=== PATIENT | female | born 1990 | race African-American/Black ===

== ENCOUNTER 2016-04-11 09:16 | Emergency (ER) | payer OTHER ==
[~2016-04-11] VITALS: Ht 162.6 cm; Wt 81.6 kg
[~2016-04-11 09:16] MED LIST: HYDR-971 PO; IRON1TAB30 PO; ONDA4TAB10 SL
--- NOTE | 2016-04-11 10:11 | PHYS DOC ---
Past Medical History Past Medical History: Anemia, Other Additional Past Medical Histor: PSEUDOTUMOR CEREBRI, ovarian cysts Past Surgical History: , Other Additional Past Surgical Histo: SPINAL TAP Alcohol Use: Occasionally Drug Use: None Adult General Chief Complaint Chief Complaint: ABDOMINAL PAIN HPI HPI Patient is a 25 year old female presents emergency department stating that she is having lower abdominal pain. She states that goes all the way across the lower abdomen. She also states that she has having mid lower back pain. Patient states that she has been having urinary frequency. She does state yesterday when she wiped she did have some spotting in which she noted. She is not sure if that came from the vaginal area or if that was after urination. Patient does state that she is 6 days late for her last menstrual period. Her last menstrual period was March 04. Patient states that she does have irregular menstrual cycles and somnolence she has missed her cycle. Patient does state she's had some nausea feeling although this is pretty normal for her. She denies any vomiting. She denies any fever, chills or any diarrhea. Review of Systems Review of Systems Constitutional: Denies fever or chills [] Eyes: Denies change in visual acuity, redness, or eye pain [] HENT: Denies nasal congestion or sore throat [] Respiratory: Denies cough or shortness of breath [] Cardiovascular: No additional information not addressed in HPI [] GI: lower abdominal pain, nausea, denies vomiting, bloody stools or diarrhea [] : Denies dysuria or hematuria [] Musculoskeletal: Denies back pain or joint pain [] Integument: Denies rash or skin lesions [] Neurologic: Denies headache, focal weakness or sensory changes [] Allergies Allergies Allergies Coded Allergies Type Severity Reaction Last Updated Verified No Known Drug Allergies 12/07/15 No Physical Exam Physical Exam Constitutional: Well developed, well nourished, no acute distress, non-toxic appearance. [] HENT: Normocephalic, atraumatic, bilateral external ears normal, oropharynx moist, no oral exudates, nose normal. [] Eyes: PERRLA, EOMI, conjunctiva normal, no discharge. [] Neck: Normal range of motion, no tenderness, supple, no stridor. [] Cardiovascular:Heart rate regular rhythm, no murmur [] Lungs & Thorax: Bilateral breath sounds clear to auscultation [] Abdomen: Bowel sounds hypoactive, soft, no tenderness, no masses, no pulsatile masses. [] Skin: Warm, dry, no erythema, no rash. [] Back: No tenderness, no CVA tenderness. [] Extremities: No tenderness, no cyanosis, no clubbing, ROM intact, no edema. [] Neurologic: Alert and oriented X 3, normal motor function, normal sensory function, no focal deficits noted. [] Psychologic: Affect normal, judgement normal, mood normal. [] Current Patient Data Vital Signs Vital Signs Date Time Temp Pulse Resp B/P Pulse Ox O2 Delivery O2 Flow Rate FiO2 04/11/16 11:53 77 16 118/62 98 Room Air 04/11/16 09:30 98.9 98.9 Lab Values Laboratory Tests Test 04/11/16 09:56 04/11/16 10:30 Urine Collection Type Void Urine Color Yellow Urine Clarity Clear Urine pH 6.0 Urine Specific [place] >=1.030 Urine Protein Negativemg/dL (NEG-TRACE) Urine Glucose (UA) Negativemg/dL (NEG) Urine Ketones (Stick) Negativemg/dL (NEG) Urine Blood Negative (NEG) Urine Nitrite Negative (NEG) Urine Bilirubin Negative (NEG) Urine Urobilinogen Dipstick 0.2mg/dL (0.2 mg/dL) Urine Leukocyte Esterase Large (NEG) Urine RBC 0/HPF (0-2) Urine WBC 11-20/HPF (0-4) Urine Squamous Epithelial Cells Mod/LPF Urine Bacteria Moderate/HPF (0-FEW) Urine Mucus Marked/LPF Maternal Serum HCG Beta Subunit 14mIU/mL (0-6) H Microbiology 04/11/16 Wet Prep - Final, Complete EKG EKG [] Radiology/Procedures Radiology/Procedures ][[facility] [address] [place], [place] [id number] IMAGING REPORT Signed PATIENT: LORENA CHAMPION ACCOUNT: [id number] : 1990 LOCATION: ER AGE: 25 SEX: F EXAM STATUS: REG ER ORD. PHYSICIAN: ALETHA OLIVA NP REASON: lower abdominal cramping with spotting yesterday PROCEDURE: OB <14 WKS W/TV Indication . Lower abdominal discomfort. An early obstetrical ultrasound examination was performed. Initially transabdominal scans were obtained. The initial transabdominal scans were supplemented with transvaginal scans. No quantitative hCG value is available time of the interpretation of the study. No recent pelvic ultrasound imaging is available for comparison purposes. The uterus measures approximately 9.6 x 5.6 x 4.8 cm. The endometrium is mildly thickened at 1.3 cm. No IUP is seen. Significant free fluid in the pelvis is not seen. There is a septated hypoechoic mass, compatible with a physiologic cyst, associated with the right ovary. The left ovary appears normal. IMPRESSION: No evidence of IUP. The findings should be correlated with a quantitative hCG value. Diagnostic considerations would include non state, early IUP, miscarriage or ectopic . DICTATED and SIGNED BY: CHRISTIAN BOUDREAUX MD DATE: 04/11/16 1104 CC: ALETHA OLIVA IT HELP DESK ANALYST; NO PCP ~ Course & Med Decision Making Course & Med Decision Making Pertinent Labs and Imaging studies reviewed. (See chart for details) Patient was noted to have a urinary tract infection. Ultrasound was able to identify an intrauterine at this time unsure if it's too early or if there is a possibility of miscarriage. They did question ectopic . Vaginal exam was completed patient with no adnexal tenderness noted. Patient does have cervical motion tenderness. She does have some yellow vaginal discharge. Quantitative hCG was 14. WetPrep positive for bacterial vaginosis. Urine was positive for urinary tract infection. Patient will be placed on Flagyl as well as Macrobid. Recommended patient to follow up with her PANEL SEWER for a series of quantitative hCGs. Patient was provided with results. Signs and symptoms to return back to emergency department as been provided. Patient agrees with discharge instructions treatment regimens and follow-up recommendations. [] Dragon Disclaimer Dragon Disclaimer This electronic medical record was generated, in whole or in part, using a voice recognition dictation system. Departure Departure Impression: Primary Impression: Abdominal pain affecting Additional Impressions: Threatened UTI (urinary tract infection) Bacterial vaginosis Disposition: HOME, SELF-CARE Condition: STABLE Referrals: NO PCP (PCP) Patient Instructions: Abdominal Pain During , [id number], Bacterial Vaginosis, [id number], Threatened Miscarriage, Iqhm-ik-Mjqe, Urinary Tract Infection, Ccze-bo-Fefx Additional Instructions: Activity as tolerated. Medication as prescribed. Drink plenty of fluids such as water and cranberry juice. Avoid cranberry juice cocktail, carbonated beverages, citrus fruits alcohol and caffeine as these are all considered irritants to the bladder. Your quantitative hCG is 14 you will need to follow-up with an PANEL SEWER for serial quantitative hCG results follow-up with him in 2-3 days. Pelvic rest. This would include no sexual activity nothing to be inserted into the vaginal area. Follow-up with your PANEL SEWER in the next 2-3 days. Return back to emergency prior signs symptoms of become worse. Scripts Nitrofurantoin Monohyd/M-Cryst (Macrobid 100 Mg Capsule)100 Mg Capsule1 Cap PO BID #14 CAP Prov:ALETHA OLIVA NP 04/11/16 Metronidazole (Flagyl)500 Mg Tablet1 Tab PO BID #14 TAB Prov:ALETHA OLIVA NP 04/11/16 Problem Qualifiers ALETHA OLIVA NP Apr 11, 2016 10:11
[2016-04-11 10:14] LABS: BILIRUBIN,URINE NEGATIVE (NEG); GLUCOSE,URINE NEGATIVE (NEG); NITRITE,URINE NEGATIVE (NEG); PROTEIN,URINE NEGATIVE (NEG-TRACE); UROBILINOGEN,URINE 0.2 mg/dL (0.2 mg/dL)
[2016-04-11 10:33] LABS: BACTERIA,URINE MODERATE /HPF (0-FEW); RBC,URINE 0 /HPF (0-2); SQUAMOUS EPITHELIAL CELL,UR MOD /LPF
--- NOTE | 2016-04-11 11:08 | RAD ---
Indication . Lower abdominal discomfort. An early obstetrical ultrasound examination was performed. Initially transabdominal scans were obtained. The initial transabdominal scans were supplemented with transvaginal scans. No quantitative hCG value is available time of the interpretation of the study. No recent pelvic ultrasound imaging is available for comparison purposes. The uterus measures approximately 9.6 x 5.6 x 4.8 cm. The endometrium is mildly thickened at 1.3 cm. No IUP is seen. Significant free fluid in the pelvis is not seen. There is a septated hypoechoic mass, compatible with a physiologic cyst, associated with the right ovary. The left ovary appears normal. IMPRESSION: No evidence of IUP. The findings should be correlated with a quantitative hCG value. Diagnostic considerations would include non state, early IUP, miscarriage or ectopic .
[2016-04-11 11:53] VITALS: BP 118/62
[2016-04-11] MEDS ORDERED: NITR100C62 PO (12:12)
[2016-04-11] MEDS ORDERED: METR500T PO (12:12)
== END 2016-04-11 12:35 | disposition home or self-care (01) ==
LOC: ER 09:16
DX: O20.0 Threatened abortion (principal); O98.819 Other maternal infectious and parasitic diseases complicating pregnancy, unspecified trimester; O23.599 Infection of other part of genital tract in pregnancy, unspecified trimester; Z3A.00 Weeks of gestation of pregnancy not specified
CPT/HCPCS: 36415; 76801; 76817; 81001; 81025; 84702; 86900; 86901; 87086; 87491; 87591; 99285; Q0111

== ENCOUNTER 2016-04-21 10:47 | Emergency (ER) | payer OTHER ==
[~2016-04-21] VITALS: Ht 162.6 cm; Wt 90.7 kg
[~2016-04-21 10:47] MED LIST changes: +METR500T PO; +NITR100C62 PO
[2016-04-21 11:24] LABS: BILIRUBIN,URINE NEGATIVE (NEG); GLUCOSE,URINE NEGATIVE (NEG); NITRITE,URINE NEGATIVE (NEG); PROTEIN,URINE NEGATIVE (NEG-TRACE); UROBILINOGEN,URINE 0.2 mg/dL (0.2 mg/dL)
[2016-04-21 11:43] LABS: BACTERIA,URINE FEW /HPF (0-FEW); WBC,URINE OCC /HPF (0-4)
[2016-04-21 11:44] LABS: SQUAMOUS EPITHELIAL CELL,UR MANY /LPF
[2016-04-21 11:45] LABS: ALBUMIN 3.4 g/dL (3.4-5.0); ALK PHOS 58 U/L (46-116); ALT (SGPT) 12 U/L (14-59); AST (SGOT) 15 U/L (15-37); DIRECT BILIRUBIN < 0.1 mg/dL (0.0-0.2); TOTAL BILIRUBIN 0.2 mg/dL (0.2-1.0); TOTAL PROTEIN 7.6 g/dL (6.4-8.2)
[2016-04-21 11:47] LABS: BASO % 1 % (0-3); EOS % 2 % (0-3); HEMATOCRIT 32.6 % (36.0-47.0); HEMOGLOBIN 9.5 g/dL (12.0-15.5); LYMPH # 2.3 x10^3/uL (1.0-4.8); LYMPH % 28 % (24-48); MEAN CORPUSCULAR HEMOGLOBIN 18 pg (25-35); MEAN CORPUSCULAR HGB CONC 29 g/dL (31-37); MEAN CORPUSCULAR VOLUME 63 fL (79-100); MONO % 10 % (0-9); NEUT % 59 % (31-73); PLATELET COUNT 549 x10^3/uL (140-400); RED BLOOD COUNT 5.19 x10^6/uL (3.50-5.40); RED CELL DISTRIBUTION WIDTH 19.9 % (11.5-14.5); WHITE BLOOD COUNT 8.1 x10^3/uL (4.0-11.0)
--- NOTE | 2016-04-21 12:55 | RAD ---
Exam performed: Complete abdominal ultrasound. History: Epigastric pain. Date of service: 04/21/16. Comparison: None available Technique: Real-time grayscale imaging of the right upper abdomen is performed and images are obtained. Findings: The liver is normal in size and echogenicity without focal lesions. It measures 15.6 cm in length. No intra or extraperitoneal biliary ductal dilatation is seen. Gallbladder is normal. No evidence of gallbladder wall thickening or pericholecystic fluid seen. Gallbladder wall measures 1.7 mm Common bile duct measures 2.5 mm. The right kidney measures 12.9 x 4.6 x 4.6 cm. There is no hydronephrosis or nephrolithiasis. The visualized pancreas, IVC and aorta appear normal. Impression: Negative right upper quadrant ultrasound.
[2016-04-21 13:09] LABS: CREATININE 0.8 mg/dL (0.6-1.0); GFR 106.6; POTASSIUM 4.1 mmol/L (3.5-5.1)
--- NOTE | 2016-04-21 13:13 | PHYS DOC ---
Past Medical History Past Medical History: Anemia, Other Additional Past Medical Histor: PSEUDOTUMOR CEREBRI, ovarian cysts Past Surgical History: , Other Additional Past Surgical Histo: SPINAL TAP Alcohol Use: Occasionally Drug Use: None Adult General Chief Complaint Chief Complaint: VAGINAL BLEEDING HPI HPI 25-year-old female who is a G2 in the first trimester who is presenting with some significant vaginal bleeding as well as some mild epigastrium and right upper quadrant pain. She states she's been mildly short of breath for the last day. Patient was seen 10 days ago for lower abdominal cramping and had a serum quantitative value at that time 14. She was found to have bacterial vaginosis and prescribed Flagyl. She was also found to have a UTI and prescribed Macrobid. She finished both courses of antibiotics and follow-up with OB doctor. She currently she states and vitamins and progesterone. She is speaking in complete sentences and in no acute distress at this time. He states her first was 5 years ago and required an emergent at 38 weeks. She then had a Mirena device placed and recently had this removed area. States the past medical history only of pseudotumor cerebri for which she is supposed to be taking Diamox but has not been taking her medication recently. She denies any headache or visual disturbance today. Review of Systems Review of Systems Constitutional: Denies fever or chills [] Eyes: Denies change in visual acuity, redness, or eye pain [] HENT: Denies nasal congestion or sore throat [] Respiratory: Denies cough, has shortness of breath [] Cardiovascular: No additional information not addressed in HPI [] GI: Has abdominal pain, denies nausea, denies vomiting, bloody stools or diarrhea [] : Denies dysuria or hematuria [] Musculoskeletal: Denies back pain or joint pain [] Integument: Denies rash or skin lesions [] Neurologic: Denies headache, focal weakness or sensory changes [] Endocrine: Denies polyuria or polydipsia [] Allergies Allergies Allergies Coded Allergies Type Severity Reaction Last Updated Verified No Known Drug Allergies 12/07/15 No Physical Exam Physical Exam Constitutional: Well developed, well nourished, no acute distress, non-toxic appearance. [] HENT: Normocephalic, atraumatic, bilateral external ears normal, oropharynx moist, no oral exudates, nose normal. [] Eyes: PERRLA, EOMI, conjunctiva normal, no discharge. [] Neck: Normal range of motion, no tenderness, supple, no stridor. [] Cardiovascular:Heart rate regular rhythm, no murmur [] Lungs & Thorax: Bilateral breath sounds clear to auscultation [] Abdomen: Bowel sounds normal, soft, epigastric and RUQ tenderness, no masses, no pulsatile masses. [] Pelvic exam: Closed cervical os with scant amount of blood in the vaginal vault , there is no cervical or adnexal tenderness Skin: Warm, dry, no erythema, no rash. [] Back: No tenderness, no CVA tenderness. [] Extremities: No tenderness, no cyanosis, no clubbing, ROM intact, no edema. [] Neurologic: Alert and oriented X 3, normal motor function, normal sensory function, no focal deficits noted. [] Psychologic: Affect normal, judgement normal, mood normal. [] Current Patient Data Vital Signs Vital Signs Date Time Temp Pulse Resp B/P Pulse Ox O2 Delivery O2 Flow Rate FiO2 04/21/16 11:20 118/82 04/21/16 11:00 99.2 85 28 100 Room Air 99.2 Lab Values Laboratory Tests Test 04/21/16 10:50 04/21/16 11:07 04/21/16 11:10 04/21/16 11:50 Urine Collection Type Unknown Urine Color Yellow Urine Clarity Clear Urine pH 6.0 Urine Specific [place] 1.020 Urine Protein Negativemg/dL (NEG-TRACE) Urine Glucose (UA) Negativemg/dL (NEG) Urine Ketones (Stick) Negativemg/dL (NEG) Urine Blood Large (NEG) Urine Nitrite Negative (NEG) Urine Bilirubin Negative (NEG) Urine Urobilinogen Dipstick 0.2mg/dL (0.2 mg/dL) Urine Leukocyte Esterase Small (NEG) Urine RBC 3-5/HPF (0-2) Urine WBC Occ/HPF (0-4) Urine Squamous Epithelial Cells Many/LPF Urine Bacteria Few/HPF (0-FEW) Urine Mucus Mod/LPF POC Urine HCG, Qualitative Hcg positive (Negative) White Blood Count 8.1x10^3/uL (4.0-11.0) Red Blood Count 5.19x10^6/uL (3.50-5.40) Hemoglobin 9.5g/dL (12.0-15.5) L Hematocrit 32.6% (36.0-47.0) L Mean Corpuscular Volume 63fL (79-100) L Mean Corpuscular Hemoglobin 18pg (25-35) L Mean Corpuscular Hemoglobin Concent 29g/dL (31-37) L Red Cell Distribution Width 19.9% (11.5-14.5) H Platelet Count 549x10^3/uL (140-400) H Neutrophils (%) (Auto) 59% (31-73) Lymphocytes (%) (Auto) 28% (24-48) Monocytes (%) (Auto) 10% (0-9) H Eosinophils (%) (Auto) 2% (0-3) Basophils (%) (Auto) 1% (0-3) Neutrophils # (Auto) 4.8x10^3uL (1.8-7.7) Lymphocytes # (Auto) 2.3x10^3/uL (1.0-4.8) Monocytes # (Auto) 0.8x10^3/uL (0.0-1.1) Eosinophils # (Auto) 0.1x10^3/uL (0.0-0.7) Basophils # (Auto) 0.0x10^3/uL (0.0-0.2) Platelet Estimate Pending Maternal Serum HCG Beta Subunit 1340mIU/mL (0-6) H Total Bilirubin 0.2mg/dL (0.2-1.0) Direct Bilirubin < 0.1mg/dL (0.0-0.2) Aspartate Amino Transferase (AST) 15U/L (15-37) Alanine Aminotransferase (ALT) 12U/L (14-59) L Alkaline Phosphatase 58U/L (46-116) Total Protein 7.6g/dL (6.4-8.2) Albumin 3.4g/dL (3.4-5.0) Lipase 150U/L (73-393) Sodium Level 141mmol/L (136-145) Potassium Level 4.1mmol/L (3.5-5.1) Chloride Level 105mmol/L (98-107) Carbon Dioxide Level 23mmol/L (21-32) Anion Gap 13 (6-14) Blood Urea Nitrogen 15mg/dL (7-20) Creatinine 0.8mg/dL (0.6-1.0) Estimated GFR (Cockcroft-Gault) 106.6 Glucose Level 89mg/dL (70-99) Calcium Level 9.0mg/dL (8.5-10.1) Laboratory Tests 04/21/16 11:10 Laboratory Tests 04/21/16 11:50 EKG EKG EKG as interpreted by me shows sinus rhythm with a rate of 66 bpm. There is T- wave inversion in V2. There are no obvious ischemic findings. Intervals are normal. There is no ectopy. Radiology/Procedures Radiology/Procedures Abdominal ultrasound demonstrated the following: The liver is normal in size and echogenicity without focal lesions. It measures 15.6 cm in length. No intra or extraperitoneal biliary ductal dilatation is seen. Gallbladder is normal. No evidence of gallbladder wall thickening or pericholecystic fluid seen. Gallbladder wall measures 1.7 mm Common bile duct measures 2.5 mm. The right kidney measures 12.9 x 4.6 x 4.6 cm. There is no hydronephrosis or nephrolithiasis. The visualized pancreas, IVC and aorta appear normal. Transvaginal OB ultrasound: Findings: The uterus is enlarged and measures 9.3 x 6.0 x 4.9 cm. The endometrial stripe is somewhat thickened and measures 3.6 mm. There is no evidence of intrauterine gestational sac. Both ovaries are normal. The right ovary measures 4.4 x 3.9 x 3.4 cm. There is a 3.0 x 2.8 x 2.4 cm cyst in the right ovary. The left ovary measures 3.3 x 3.1 x 1.8 cm. Symmetric vascularity to both ovaries There is no solid or cystic mass lesion. No free fluid Course & Med Decision Making Course & Med Decision Making Pertinent Labs and Imaging studies reviewed. (See chart for details) This 25-year-old female who's having ongoing abdominal pain and shortness of breath will have full laboratory workup and a transvaginal ultrasound. I'll also perform a pelvic exam. This time her blood work that showed an ongoing anemia that she no she has patient is not currently on iron supplements because it is causing her to feel nauseated. An abdominal ultrasound does not demonstrate any acute gallbladder pathology or any other abnormality. Her urinalysis does not demonstrate any signs of infection. Pelvic exam reveals closed cervical os with scant amount of blood seen in the vault. She will follow-up with her OB doctor as discussed on Saturday for her threatened . Her ultrasound report did not demonstrate any definitive gestational sac but she is still too early in the for this to be adequately seen. It did show a thickened endometrial stripe as well as a right ovarian cyst but no other findings. Dragon Disclaimer Dragon Disclaimer This electronic medical record was generated, in whole or in part, using a voice recognition dictation system. Departure Departure Impression: Primary Impression: Threatened Disposition: HOME, SELF-CARE Admitting Physician: Yair España Condition: STABLE Referrals: NO PCP (PCP) Patient Instructions: Threatened Miscarriage, [id number] Additional Instructions: Please follow up with your OB doctor on Saturday as discussed for your vaginal bleeding. Return to the ER if you develop any worsening of your bleeding or develop any lightheadedness or shortness of breath. Continue taking your vitamins and progesterone as prescribed. JAYLON DANGELO DO Apr 21, 2016 13:13
--- NOTE | 2016-04-21 13:37 | RAD ---
Exam performed: First trimester OB Ultrasound. Indication: The first trimester bleeding Date of Service: 04/21/16. No priors Technique: Transabdominal and transvaginal Findings: The uterus is enlarged and measures 9.3 x 6.0 x 4.9 cm. The endometrial stripe is somewhat thickened and measures 3.6 mm. There is no evidence of intrauterine gestational sac. Both ovaries are normal. The right ovary measures 4.4 x 3.9 x 3.4 cm. There is a 3.0 x 2.8 x 2.4 cm cyst in the right ovary. The left ovary measures 3.3 x 3.1 x 1.8 cm. Symmetric vascularity to both ovaries There is no solid or cystic mass lesion. No free fluid Impression: 1. Somewhat thickened endometrial stripe without definite identification of a gestational sac. Follow-up serial quantitative beta-hCG level and a short-term interval OB ultrasound in approximately 2 weeks may be of additional benefit to ensure interval progression of . 2. Right ovarian cyst, probably physiological.
[2016-04-21 13:59] VITALS: BP 147/89
[2016-04-21 20:42] LABS: PLT ESTIMATE INCREASED (ADEQUATE)
[2016-04-21 20:44] LABS: ANISOCYTOSIS SLIGHT; HYPOCHROMIA MARKED; MICROCYTOSIS MARKED; OVALOCYTES MOD; POIKILOCYTOSIS SLIGHT; SPHEROCYTES FEW
--- NOTE | 2016-04-22 12:46 | EKG ---
[facility] [address] [place] [address] Test Date: 2016-04-21 Test Time: 11:24:19 Pat Name: LORENA CHAMPION Department: Room: Gender: F Electrician: : 1990 Requested By: JAYLON DANGELO Order Number: [id number] Reading MD: Measurements Intervals [place] Rate: 66 P: 57 NE: 152 QRS: 52 QRSD: 74 T: 37 QT: 362 QTc: 381 Interpretive Statements SINUS RHYTHM LEFT ATRIAL ABNORMALITY CONSIDER RIGHT VENTRICULAR HYPERTROPHY QRS(T) CONTOUR ABNORMALITY CONSIDER INFERIOR MYOCARDIAL DAMAGE RI6.01 Unconfirmed report No previous ECG available for comparison
== END 2016-04-21 14:00 | disposition home or self-care (01) ==
LOC: ER 10:47
DX: O20.0 Threatened abortion (principal); Z3A.08 8 weeks gestation of pregnancy; Z98.890 Other specified postprocedural states; Z86.2 Personal history of diseases of the blood and blood-forming organs and certain disorders involving the immune mechanism
CPT/HCPCS: 36415; 76705; 76817; 80048; 80076; 81001; 81025; 83690; 84702; 85007; 85027; 86900; 86901; 87086; 93005; 99285-25

== ENCOUNTER 2016-04-30 16:05 | Observation (INO) | payer OTHER ==
[~2016-04-30] VITALS: Ht 162.6 cm; Wt 88.0 kg
[2016-04-30 17:10] LABS: BASO # 0.1 x10^3/uL (0.0-0.2); BASO % 1 % (0-3); EOS % 7 % (0-3); HEMATOCRIT 30.6 % (36.0-47.0); HEMOGLOBIN 9.1 g/dL (12.0-15.5); LYMPH # 2.2 x10^3/uL (1.0-4.8); LYMPH % 24 % (24-48); MEAN CORPUSCULAR HEMOGLOBIN 19 pg (25-35); MEAN CORPUSCULAR HGB CONC 30 g/dL (31-37); MEAN CORPUSCULAR VOLUME 64 fL (79-100); MONO % 10 % (0-9); NEUT % 58 % (31-73); PLATELET COUNT 440 x10^3/uL (140-400); RED BLOOD COUNT 4.78 x10^6/uL (3.50-5.40); RED CELL DISTRIBUTION WIDTH 20.6 % (11.5-14.5); WHITE BLOOD COUNT 9.3 x10^3/uL (4.0-11.0)
[2016-04-30 17:13] LABS: BILIRUBIN,URINE NEGATIVE (NEG); GLUCOSE,URINE NEGATIVE (NEG); NITRITE,URINE NEGATIVE (NEG); PH,URINE 7.5; PROTEIN,URINE 100 mg/dL (NEG-TRACE)
[2016-04-30] MEDS ORDERED: IV NORMAL SALINE 1000ML BAG 1,000 ML IV ONE (17:15)
[2016-04-30] MEDS ORDERED: ONDANSETRON PF 4 MG/2 ML VIAL. IV ONE (17:15)
[2016-04-30] MEDS: HYDROMORPHONE 2 MG/ML VIAL. IV PRN ×3 (17:18→19:53)
[2016-04-30 17:21] LABS: BACTERIA,URINE MODERATE /HPF (0-FEW); RBC,URINE TNTC /HPF (0-2); SQUAMOUS EPITHELIAL CELL,UR MANY /LPF
[2016-04-30 17:25] LABS: CALCIUM 9.1 mg/dL (8.5-10.1); CREATININE 0.7 mg/dL (0.6-1.0); GFR 124.4; POTASSIUM 4.2 mmol/L (3.5-5.1)
[2016-04-30 17:31] LABS: ALBUMIN 3.8 g/dL (3.4-5.0); DIRECT BILIRUBIN 0.1 mg/dL (0.0-0.2); TOTAL BILIRUBIN 0.2 mg/dL (0.2-1.0); TOTAL PROTEIN 7.7 g/dL (6.4-8.2)
--- NOTE | 2016-04-30 17:48 | PHYS DOC ---
Past Medical History Past Medical History: Anemia, Other Additional Past Medical Histor: PSEUDOTUMOR CEREBRI, ovarian cysts Past Surgical History: , Other Additional Past Surgical Histo: SPINAL TAP Alcohol Use: Sober Drug Use: None Adult General Chief Complaint Chief Complaint: VAGINAL BLEEDING HPI HPI 25-year-old female presenting to the emergency Department with lower abdominal pain and low back pain with vaginal bleeding. She reports being 7 weeks by last menstrual period. She has a history of having a nondiagnostic ultrasound performed and has an obstetric doctor. Her pain is severe radiating to the back and has been present for the past day or 2. She also has mild amount of vaginal bleeding. No alleviating factors present. Review of systems is negative for chest pain shortness of breath. She denies nausea or vomiting. All other review of systems is negative unless otherwise noted in history of present illness. Review of Systems Review of Systems SEE ABOVE. Current Medications Current Medications Current Medications Medications (Trade) Dose Ordered Sig/Garret Start Time Stop Time Status Last Admin Dose Admin Hydromorphone HCl (Dilaudid) 0.5 mg PRN Q1HR PRN 04/30/16 17:15 04/30/16 17:18 0.5 MG Ondansetron HCl (Zofran) 4 mg 1X ONCE 04/30/16 17:15 04/30/16 17:16 DC 04/30/16 17:18 4 MG Sodium Chloride (Iv Sodium Chloride 0.9% 1000ml Bag) 1,000 ml @ 1,000 mls/hr 1X ONCE 04/30/16 17:15 04/30/16 18:14 04/30/16 17:17 1,000 MLS/HR Allergies Allergies Allergies Coded Allergies Type Severity Reaction Last Updated Verified No Known Drug Allergies 12/07/15 No Physical Exam Physical Exam Constitutional: Well developed, well nourished, no acute distress, non-toxic appearance. [] HENT: Normocephalic, atraumatic, bilateral external ears normal, oropharynx moist, no oral exudates, nose normal. Eyes: PERRLA, EOMI, conjunctiva normal, no discharge. [] Neck: Normal range of motion, no tenderness, supple, no stridor. Cardiovascular:Heart rate regular rhythm, no murmur [] Lungs & Thorax: Bilateral breath sounds clear to auscultation Abdomen: Abdomen is soft and tender to palpation generally without a focus. No rebound tenderness. Mild guarding present. Skin: Warm, dry, no erythema, no rash. Back: No tenderness, no CVA tenderness. [] Extremities: No tenderness, no cyanosis, no clubbing, ROM intact, no edema. [] Neurologic: Alert and oriented X 3, normal motor function, normal sensory function, no focal deficits noted. Psychologic: Affect normal, judgement normal, mood normal. Current Patient Data Vital Signs Vital Signs Date Time Temp Pulse Resp B/P Pulse Ox O2 Delivery O2 Flow Rate FiO2 04/30/16 16:36 99.0 108 18 135/71 99 Room Air 99.0 Lab Values Laboratory Tests Test 04/30/16 16:20 04/30/16 16:49 Urine Collection Type Unknown Urine Color Red Urine Clarity Cloudy Urine pH 7.5 Urine Specific [place] 1.025 Urine Protein 100mg/dL (NEG-TRACE) Urine Glucose (UA) Negativemg/dL (NEG) Urine Ketones (Stick) Tracemg/dL (NEG) Urine Blood Large (NEG) Urine Nitrite Negative (NEG) Urine Bilirubin Negative (NEG) Urine Urobilinogen Dipstick 1.0mg/dL (0.2 mg/dL) Urine Leukocyte Esterase Moderate (NEG) Urine RBC Tntc/HPF (0-2) Urine WBC 11-20/HPF (0-4) Urine Squamous Epithelial Cells Many/LPF Urine Bacteria Moderate/HPF (0-FEW) White Blood Count 9.3x10^3/uL (4.0-11.0) Red Blood Count 4.78x10^6/uL (3.50-5.40) Hemoglobin 9.1g/dL (12.0-15.5) L Hematocrit 30.6% (36.0-47.0) L Mean Corpuscular Volume 64fL (79-100) L Mean Corpuscular Hemoglobin 19pg (25-35) L Mean Corpuscular Hemoglobin Concent 30g/dL (31-37) L Red Cell Distribution Width 20.6% (11.5-14.5) H Platelet Count 440x10^3/uL (140-400) H Neutrophils (%) (Auto) 58% (31-73) Lymphocytes (%) (Auto) 24% (24-48) Monocytes (%) (Auto) 10% (0-9) H Eosinophils (%) (Auto) 7% (0-3) H Basophils (%) (Auto) 1% (0-3) Neutrophils # (Auto) 5.4x10^3uL (1.8-7.7) Lymphocytes # (Auto) 2.2x10^3/uL (1.0-4.8) Monocytes # (Auto) 0.9x10^3/uL (0.0-1.1) Eosinophils # (Auto) 0.7x10^3/uL (0.0-0.7) Basophils # (Auto) 0.1x10^3/uL (0.0-0.2) Platelet Estimate Pending Sodium Level 141mmol/L (136-145) Potassium Level 4.2mmol/L (3.5-5.1) Chloride Level 106mmol/L (98-107) Carbon Dioxide Level 22mmol/L (21-32) Anion Gap 13 (6-14) Blood Urea Nitrogen 10mg/dL (7-20) Creatinine 0.7mg/dL (0.6-1.0) Estimated GFR (Cockcroft-Gault) 124.4 Glucose Level 90mg/dL (70-99) Calcium Level 9.1mg/dL (8.5-10.1) Total Bilirubin 0.2mg/dL (0.2-1.0) Direct Bilirubin 0.1mg/dL (0.0-0.2) Aspartate Amino Transferase (AST) 20U/L (15-37) Alanine Aminotransferase (ALT) 21U/L (14-59) Alkaline Phosphatase 66U/L (46-116) Total Protein 7.7g/dL (6.4-8.2) Albumin 3.8g/dL (3.4-5.0) Lipase 148U/L (73-393) Laboratory Tests 04/30/16 16:49 Laboratory Tests 04/30/16 16:49 EKG EKG [] Radiology/Procedures Radiology/Procedures [] Course & Med Decision Making Course & Med Decision Making Pertinent Labs and Imaging studies reviewed. (See chart for details) [] 25-year-old female presenting to the emergency department today with abdominal pain and vaginal bleeding in . Vital signs tachycardic with normal blood pressure. Afebrile. Pertinent physical exam findings tenderness of the abdomen without peritonitis. Blood work obtained which showed an anemia of 9.1. Urinalysis showed obvious blood with a contaminated specimen bacteria present. Chemistry panel unremarkable. Ultrasound shows no intrauterine with free fluid in the pelvis. Beta hCG above the discriminatory zone. Rh+. I discussed the case with Dr. Amaya obtained a type and screen. She accepted the patient for admission to the hospital. The patient was then admitted to her care for further evaluation workup and care. Dragon Disclaimer Dragon Disclaimer This electronic medical record was generated, in whole or in part, using a voice recognition dictation system. Departure Departure Impression: Primary Impression: Threatened miscarriage Disposition: ADMITTED INPATIENT Admitting Physician: Other (Monique) Condition: STABLE Referrals: NO PCP (PCP) KHALIF BROCK Jr, MD, AUSTIN L MD Apr 30, 2016 17:48
--- NOTE | 2016-04-30 18:05 | RAD ---
PROCEDURE First trimester OB ultrasound. HISTORY Abdominal pain and bleeding. TECHNIQUE 1st trimester OB ultrasound was performed. Transvaginal imaging was performed. COMPARISON None for this . FINDINGS Uterus measures 9.4 x 5.9 x 5.0 centimeters. Cervix measures 3 centimeters in length. Endometrial stripe measures 13 millimeters. No intrauterine gestational sac is apparent. No pole, yolk sac, or heart activity is identified. Both ovaries are visualized, 2.7 centimeter cyst noted in the right ovary. There is mild free pelvic fluid. HCG level is not available at the time of interpretation. IMPRESSION No viable intrauterine . Please correlate with HCG level. Differential considerations would include missed , early IUP of less than 4 weeks, or nonvisualized ectopic . Serial HCG and consideration of short term follow up ultrasound would be of benefit. Electronically signed by: Kris Balderrama MD (Apr 30, 2016 18:03:53)
[2016-04-30 18:25] LABS: ANISOCYTOSIS MOD; HYPOCHROMIA MOD; MICROCYTOSIS MOD; PLT ESTIMATE INCREASED (ADEQUATE)
[2016-04-30 18:26] LABS: POIKILOCYTOSIS SLIGHT
[2016-04-30 18:27] LABS: OVALOCYTES FEW
[2016-04-30] MEDS ORDERED: ONDANSETRON PF 4 MG/2 ML VIAL. IV PRN (19:45)
[2016-04-30] MEDS: IV NORMAL SALINE 1000ML BAG 1,000 ML IV SCH (20:49)
[2016-04-30] MEDS: MORPHINE SULFATE 2 MG/ML DISP.SYRIN. IV PRN (20:49)
[2016-04-30 21:45] VITALS: BP 102/58
[2016-04-30] MEDS ORDERED: HYDROXYZINE IM 50 MG/ML VIAL. IM PRN ×2 (21:45→22:45)
[2016-04-30] MEDS ORDERED: PROMETHAZINE 25 MG SUPP.RECT. PR PRN (21:45)
[2016-04-30] MEDS ORDERED: PROMETHAZINE 12.5 MG in IV NORMAL SALINE 50ML 50 ML IV PRN (22:45)
[2016-04-30 23:20] VITALS: BP 82/46
[2016-05-01] VITALS (10 sets, daily range): BP systolic 87–110; BP diastolic 40–66
[2016-05-01] MEDS: MORPHINE SULFATE 2 MG/ML DISP.SYRIN. IV PRN ×8 (01:09→19:12)
[2016-05-01] MEDS: IV NORMAL SALINE 1000ML BAG 1,000 ML IV SCH (04:48)
[2016-05-01] MEDS ORDERED: ONDANSETRON PF 4 MG/2 ML VIAL. IV PRN (08:30)
[2016-05-01] MEDS ORDERED: PROCHLORPERAZINE 10 MG/2 ML VIAL. IV PRN (08:30)
[2016-05-01] MEDS ORDERED: IV RINGERS,LACTATED 1000ML 1,000 ML IV SCH (08:30)
[2016-05-01] MEDS ORDERED: HYDROMORPHONE 2 MG/ML VIAL. IV PRN (08:30)
[2016-05-01] MEDS ORDERED: FENTANYL PF 100 MCG/2 ML VIAL. IV PRN (08:30)
[2016-05-01] MEDS ORDERED: LIDOCAINE 1% 1 ML SYRINGE. ID PRN (08:30)
[2016-05-01] MEDS ORDERED: SEVOFLURANE 61 TO 120 MINUTES. IH ONE (08:37)
[2016-05-01] MEDS ORDERED: NEOSTIGMINE METHYLSULFATE 5 MG/5 ML SYRINGE. ONE (08:37)
[2016-05-01] MEDS ORDERED: PROPOFOL 20 ML IV ONE (08:38)
[2016-05-01] MEDS ORDERED: GLYCOPYRROLATE 1 MG/5 ML VIAL. ONE (08:38)
[2016-05-01] MEDS ORDERED: ROCURONIUM 50 MG/5 ML VIAL. ONE (08:38)
[2016-05-01] MEDS ORDERED: DEXAMETHASONE SOD PHOS 20 MG/5 ML VIAL. ONE (08:38)
[2016-05-01] MEDS ORDERED: ONDANSETRON PF 4 MG/2 ML VIAL. ONE (08:38)
[2016-05-01] MEDS ORDERED: MIDAZOLAM HCL 2 MG/2 ML VIAL. ONE (08:38)
[2016-05-01] MEDS ORDERED: FENTANYL PF 100 MCG/2 ML VIAL. ONE ×2 (08:38→09:46)
[2016-05-01] MEDS ORDERED: KETOROLAC 60 MG/2 ML SYRINGE FOR OR. ONE (08:39)
[2016-05-01] MEDS ORDERED: LIDOCAINE 2% 100 MG/5 ML DISP.SYRIN. ONE (08:39)
[2016-05-01] MEDS ORDERED: SUCCINYLCHOLINE 200 MG/10 ML VIAL. ONE (08:40)
--- NOTE | 2016-05-01 08:47 | PDOC ---
SUBJECTIVE Subjective Patient has lot of pelvic pain OBJECTIVE Objective Abdomen soft but tender Vaginal bleeding Vital Signs Vital Signs Date Time Temp Pulse Resp B/P Pulse Ox O2 Delivery O2 Flow Rate FiO2 05/01/16 06:05 98.1 79 16 99/43 98.1 05/01/16 02:58 97.7 67 16 93/56 97.7 04/30/16 23:20 98.1 65 20 82/46 97 Room Air 98.1 04/30/16 21:45 98.5 73 18 102/58 96 Room Air 98.5 04/30/16 21:10 68 20 106/70 98 Room Air 04/30/16 20:55 67 19 97/53 98 Room Air 04/30/16 20:49 18 04/30/16 19:55 66 20 106/62 100 Room Air 04/30/16 18:25 84 18 101/54 99 Room Air 04/30/16 18:03 18 Room Air 04/30/16 17:12 86 18 121/59 99 Room Air 04/30/16 16:36 99.0 108 18 135/71 99 Room Air 99.0 04/30/16 16:33 105 18 135/71 98 Room Air I & O Intake and Output 05/01/16 07:00 Intake Total 1906 ml Output Total 800 ml Balance 1106 ml Intake Oral 0 ml IV Total 1000 ml Other 906 ml Output Urine Total 800 ml # Voids 2 PHYSICAL EXAM Physical Exam Sonogram done Pelvic exam shows cx closed Uterus tender Also tenderness in adnexal area right side Rule out Ectopic ASSESSMENT/PLAN Assessment/Plan Laparotomy possible Salpingectomy Problems: COMMENT Lab Laboratory Tests Test 04/30/16 16:20 04/30/16 16:49 Urine Collection Type Unknown Urine Color Red Urine Clarity Cloudy Urine pH 7.5 Urine Specific [place] 1.025 Urine Protein 100mg/dL (NEG-TRACE) Urine Glucose (UA) Negativemg/dL (NEG) Urine Ketones (Stick) Tracemg/dL (NEG) Urine Blood Large (NEG) Urine Nitrite Negative (NEG) Urine Bilirubin Negative (NEG) Urine Urobilinogen Dipstick 1.0mg/dL (0.2 mg/dL) Urine Leukocyte Esterase Moderate (NEG) Urine RBC Tntc/HPF (0-2) Urine WBC 11-20/HPF (0-4) Urine Squamous Epithelial Cells Many/LPF Urine Bacteria Moderate/HPF (0-FEW) White Blood Count 9.3x10^3/uL (4.0-11.0) Red Blood Count 4.78x10^6/uL (3.50-5.40) Hemoglobin 9.1g/dL (12.0-15.5) Hematocrit 30.6% (36.0-47.0) Mean Corpuscular Volume 64fL (79-100) Mean Corpuscular Hemoglobin 19pg (25-35) Mean Corpuscular Hemoglobin Concent 30g/dL (31-37) Red Cell Distribution Width 20.6% (11.5-14.5) Platelet Count 440x10^3/uL (140-400) Neutrophils (%) (Auto) 58% (31-73) Lymphocytes (%) (Auto) 24% (24-48) Monocytes (%) (Auto) 10% (0-9) Eosinophils (%) (Auto) 7% (0-3) Basophils (%) (Auto) 1% (0-3) Neutrophils # (Auto) 5.4x10^3uL (1.8-7.7) Lymphocytes # (Auto) 2.2x10^3/uL (1.0-4.8) Monocytes # (Auto) 0.9x10^3/uL (0.0-1.1) Eosinophils # (Auto) 0.7x10^3/uL (0.0-0.7) Basophils # (Auto) 0.1x10^3/uL (0.0-0.2) Platelet Estimate Increased (ADEQUATE) Hypochromasia Mod Poikilocytosis Slight Anisocytosis Mod Microcytosis Mod Ovalocytes Few Maternal Serum HCG Beta Subunit 3490mIU/mL (0-6) Sodium Level 141mmol/L (136-145) Potassium Level 4.2mmol/L (3.5-5.1) Chloride Level 106mmol/L (98-107) Carbon Dioxide Level 22mmol/L (21-32) Anion Gap 13 (6-14) Blood Urea Nitrogen 10mg/dL (7-20) Creatinine 0.7mg/dL (0.6-1.0) Estimated GFR (Cockcroft-Gault) 124.4 Glucose Level 90mg/dL (70-99) Calcium Level 9.1mg/dL (8.5-10.1) Total Bilirubin 0.2mg/dL (0.2-1.0) Direct Bilirubin 0.1mg/dL (0.0-0.2) Aspartate Amino Transf (AST/SGOT) 20U/L (15-37) Alanine Aminotransferase (ALT/SGPT) 21U/L (14-59) Alkaline Phosphatase 66U/L (46-116) Total Protein 7.7g/dL (6.4-8.2) Albumin 3.8g/dL (3.4-5.0) Lipase 148U/L (73-393) MICHAEL MIGUEL MD May 01, 2016 08:47
[2016-05-01] MEDS ORDERED: CEFAZOLIN 2GM PREMIX 50 ML IV ONE ×2 (09:10→09:30)
--- NOTE | 2016-05-01 09:56 | HP ---
ADMIT DATE: 04/30/2016 CHIEF COMPLAINT AND HISTORY OF PRESENT ILLNESS: This patient is a 25-year-old female who is being admitted to the [facility] through the Emergency Room because of excess pelvic pain associated with some bleeding. She is about 7 weeks and had a positive test and had HCG level of about 2000 in the ER and has been having problem with and pain for the last 4 days and admitted for further treatment. OBJECTIVE: The physical examination reveals the patient is in lot of pain. Vital signs being stable. Hemoglobin 9.1. Abdomen feels soft, tenderness in the lower abdomen, more so to the right. Pelvic exam shows external genitalia being normal. She does have some vaginal bleeding at this time. On bimanual exam, uterus is quite tender and also tenderness in the right adnexal area and diffuse tenderness all over the abdomen. Extremities: No edema feet. IMPRESSION: with bleeding, acute pelvic pain, rule out ectopic . PLAN: Laparotomy, possible salpingectomy. MICHAEL MIGUEL MD DR: CHANTELLE/erin JOB#: [id number] / [id number]
--- NOTE | 2016-05-01 10:17 | PDOC ---
SUBJECTIVE Subjective with bleeding Pelvic pain OBJECTIVE Objective Pelvic pain Tenderness in pelvis Vital Signs Vital Signs Date Time Temp Pulse Resp B/P Pulse Ox O2 Delivery O2 Flow Rate FiO2 05/01/16 09:02 97.8 67 20 101/59 99 Room Air 97.8 05/01/16 06:05 98.1 79 16 99/43 98.1 05/01/16 02:58 97.7 67 16 93/56 97.7 04/30/16 23:20 98.1 65 20 82/46 97 Room Air 98.1 04/30/16 21:45 98.5 73 18 102/58 96 Room Air 98.5 04/30/16 21:10 68 20 106/70 98 Room Air 04/30/16 20:55 67 19 97/53 98 Room Air 04/30/16 20:49 18 04/30/16 19:55 66 20 106/62 100 Room Air 04/30/16 18:25 84 18 101/54 99 Room Air 04/30/16 18:03 18 Room Air 04/30/16 17:12 86 18 121/59 99 Room Air 04/30/16 16:36 99.0 108 18 135/71 99 Room Air 99.0 04/30/16 16:33 105 18 135/71 98 Room Air I & O Intake and Output 05/01/16 07:00 Intake Total 1906 ml Output Total 800 ml Balance 1106 ml Intake Oral 0 ml IV Total 1000 ml Other 906 ml Output Urine Total 800 ml # Voids 2 PHYSICAL EXAM Physical Exam Abdomen tender ASSESSMENT/PLAN Assessment/Plan Under GA Laparotomy done Right side Salpingectomy done EBL 50 cc Problems: COMMENT Lab Laboratory Tests Test 04/30/16 16:20 04/30/16 16:49 Urine Collection Type Unknown Urine Color Red Urine Clarity Cloudy Urine pH 7.5 Urine Specific [place] 1.025 Urine Protein 100mg/dL (NEG-TRACE) Urine Glucose (UA) Negativemg/dL (NEG) Urine Ketones (Stick) Tracemg/dL (NEG) Urine Blood Large (NEG) Urine Nitrite Negative (NEG) Urine Bilirubin Negative (NEG) Urine Urobilinogen Dipstick 1.0mg/dL (0.2 mg/dL) Urine Leukocyte Esterase Moderate (NEG) Urine RBC Tntc/HPF (0-2) Urine WBC 11-20/HPF (0-4) Urine Squamous Epithelial Cells Many/LPF Urine Bacteria Moderate/HPF (0-FEW) White Blood Count 9.3x10^3/uL (4.0-11.0) Red Blood Count 4.78x10^6/uL (3.50-5.40) Hemoglobin 9.1g/dL (12.0-15.5) Hematocrit 30.6% (36.0-47.0) Mean Corpuscular Volume 64fL (79-100) Mean Corpuscular Hemoglobin 19pg (25-35) Mean Corpuscular Hemoglobin Concent 30g/dL (31-37) Red Cell Distribution Width 20.6% (11.5-14.5) Platelet Count 440x10^3/uL (140-400) Neutrophils (%) (Auto) 58% (31-73) Lymphocytes (%) (Auto) 24% (24-48) Monocytes (%) (Auto) 10% (0-9) Eosinophils (%) (Auto) 7% (0-3) Basophils (%) (Auto) 1% (0-3) Neutrophils # (Auto) 5.4x10^3uL (1.8-7.7) Lymphocytes # (Auto) 2.2x10^3/uL (1.0-4.8) Monocytes # (Auto) 0.9x10^3/uL (0.0-1.1) Eosinophils # (Auto) 0.7x10^3/uL (0.0-0.7) Basophils # (Auto) 0.1x10^3/uL (0.0-0.2) Platelet Estimate Increased (ADEQUATE) Hypochromasia Mod Poikilocytosis Slight Anisocytosis Mod Microcytosis Mod Ovalocytes Few Maternal Serum HCG Beta Subunit 3490mIU/mL (0-6) Sodium Level 141mmol/L (136-145) Potassium Level 4.2mmol/L (3.5-5.1) Chloride Level 106mmol/L (98-107) Carbon Dioxide Level 22mmol/L (21-32) Anion Gap 13 (6-14) Blood Urea Nitrogen 10mg/dL (7-20) Creatinine 0.7mg/dL (0.6-1.0) Estimated GFR (Cockcroft-Gault) 124.4 Glucose Level 90mg/dL (70-99) Calcium Level 9.1mg/dL (8.5-10.1) Total Bilirubin 0.2mg/dL (0.2-1.0) Direct Bilirubin 0.1mg/dL (0.0-0.2) Aspartate Amino Transf (AST/SGOT) 20U/L (15-37) Alanine Aminotransferase (ALT/SGPT) 21U/L (14-59) Alkaline Phosphatase 66U/L (46-116) Total Protein 7.7g/dL (6.4-8.2) Albumin 3.8g/dL (3.4-5.0) Lipase 148U/L (73-393) MICHAEL MIGUEL MD May 01, 2016 10:17
[2016-05-01] MEDS: FENTANYL PF 100 MCG/2 ML VIAL. IV PRN ×4 (10:33→11:06)
--- NOTE | 2016-05-01 10:40 | OP ---
DATE OF SURGERY: 04/30/2016 PREOPERATIVE DIAGNOSES: with pelvic pain, vaginal bleeding, possible ectopic . POSTOPERATIVE DIAGNOSIS: Right side tubal . OPERATIVE PROCEDURE: Laparotomy, right side salpingectomy. DESCRIPTION OF PROCEDURE: The patient was taken to the operating room. Under general anesthesia, she was placed in the dorsal supine position. Barrera catheter introduced to bladder for continuous bladder drainage. Lower abdomen was prepped and draped in the usual manner. A Pfannenstiel incision was made. Abdomen opened in layers. Visualization of pelvic structures revealed tubal on the right side fallopian tube. The left tube and ovary appeared normal. Uterus was normal. No internal bleeding seen. Minimal blood in the cul-de-sac and aspiration of this blood in the cul-de-sac was done. After this, a Adam clamp was used to ligate the mesosalpinx on the right side and the right side fallopian tube with the was removed and it was ligated with 0 chromic catgut sutures and after this, there was no bleeding. Abdomen closed in layers using continuous 0 chromic catgut sutures for the peritoneum, the muscle, the fascia; 3-0 plain continuous sutures applied for subcutaneous tissue; and 3-0 Vicryl subcutaneous sutures were placed, a pressure dressing was given. The patient was sent to the recovery room in good condition. No complications encountered at the time of the procedure. Estimated blood loss was 50 mL. The patient tolerated the procedure well. No complications. MICHAEL MIGUEL MD DR: Perez JOB#: [id number] / [id number]
[2016-05-01] MEDS ORDERED: OXYCODONE/APAP 5/325 TABLET. PO PRN (13:30)
[2016-05-01] MEDS: OXYCODONE/APAP 5/325 TABLET. PO PRN ×2 (14:19→15:39)
[2016-05-01] MEDS: HYDROCODONE/APAP 5/325MG TABLET. PO PRN (19:59)
[2016-05-01] MEDS ORDERED: MORPHINE SULFATE 2 MG/ML DISP.SYRIN. IV PRN (21:30)
[2016-05-02] MEDS: HYDROCODONE/APAP 5/325MG TABLET. PO PRN ×4 (00:20→14:05)
[2016-05-02] MEDS ORDERED: ACETAMINOPHEN 325 MG TABLET. PO PRN (03:45)
--- NOTE | 2016-05-02 05:45 | PDOC ---
SUBJECTIVE Subjective Patient has pelvic pain OBJECTIVE Objective Abdomen soft Dressing dry Vital Signs Vital Signs Date Time Temp Pulse Resp B/P Pulse Ox O2 Delivery O2 Flow Rate FiO2 05/01/16 23:08 98.3 65 16 110/66 98.3 05/01/16 18:00 16 Room Air 05/01/16 17:00 18 Room Air 05/01/16 16:38 18 Room Air 05/01/16 15:39 18 05/01/16 14:30 98.4 59 18 104/41 97 Room Air 98.4 05/01/16 14:19 16 Room Air 05/01/16 13:21 98.1 55 16 108/58 95 Room Air 98.1 05/01/16 12:45 54 16 107/60 05/01/16 12:15 52 105/60 05/01/16 12:00 54 18 110/40 100 Room Air 05/01/16 11:52 16 Room Air 05/01/16 11:45 54 18 87/46 100 Room Air 05/01/16 11:30 97.8 64 16 106/63 100 Room Air 97.8 05/01/16 11:09 51 18 106/59 99 Nasal Cannula 2 05/01/16 11:06 100 Nasal Cannula 2.0 05/01/16 10:58 Nasal Cannula 2 05/01/16 10:57 98 Nasal Cannula 2.0 05/01/16 10:54 98.2 54 14 103/61 98 Nasal Cannula 2 98.2 05/01/16 10:49 100 Room Air 05/01/16 10:44 100 Room Air 05/01/16 10:41 100 Room Air 05/01/16 10:39 57 16 105/58 99 Room Air 05/01/16 10:33 100 Simple Mask 10.0 05/01/16 10:30 Room Air 05/01/16 10:24 97.7 67 12 108/52 100 Simple Mask 10 97.7 05/01/16 09:02 97.8 67 20 101/59 99 Room Air 97.8 I & O Intake and Output 05/02/16 07:00 Intake Total 1650 ml Output Total 800 ml Balance 850 ml IV Total 1650 ml Output Urine Total 800 ml # Voids 1 PHYSICAL EXAM Physical Exam Incision healing Explained to patient about operative findings Patient likes to go home ASSESSMENT/PLAN Assessment/Plan Will go home today PM Return to office in 2 weeks Problems: MICHAEL MIGUEL MD May 02, 2016 05:45
[2016-05-02 06:08] VITALS: BP 108/65
[2016-05-02 09:56] VITALS: BP 99/56
[2016-05-02 16:31] VITALS: BP 102/58
--- NOTE | 2016-05-02 16:42 | PATHOLOGY ---
PATHOLOGY REPORT * * * * * * * * FINAL DIAGNOSIS: Fallopian tube, right salpingectomy: - Ectopic tubal . - Hematosalpinx. COMMENT: There is no evidence of rupture. (JPM:csd; d/t: 05/02/2016) REPORT ELECTRONICALLY SIGNED BY: Yanick Giron M.D. DATE/TIME: 05/02/2016 16:41 * * * * * * * * GROSS PATHOLOGY: The specimen is received in formalin, labeled "Sai Champion and right fallopian tube ectopic ." Received is an 8 g fimbriated fallopian tube measuring 5.3 cm in length and 1.5 cm in diameter. The fallopian tube is markedly dilated. The external surface is purple-pink and wrinkled. Sectioning reveals a 1.3 cm in diameter lumen filled with dark red blood coagulum admixed with possible pink-scott soft tissue. No parts are grossly identified. Portable Machine Sander sections are submitted in cassettes A1-A3. (TTL; 05/01/2016) INITIAL CPT CODE(S): A; 40711 Professional services performed by [facility] [place] [address] Technical services performed by [facility] at [address] [place] [address] [address] [address]. SPECIMEN(S) RECEIVED: A.Right fallopian tube ectopic CLINICAL HISTORY: Abdominal pain, possible ectopic PATIENT: SAI CHAMPION /AGE: 5 1990 (Age: 25) PATIENT #: [id number] ALT CASE #: SPECIMEN COLLECTION DATE: 05/01/2016 SPECIMEN RECEIVED DATE: 05/01/2016 [facility] - [id number] [place] [address] - PHONE: [phone] * * * END OF REPORT * * *
== END 2016-05-02 13:20 | disposition home or self-care (01) ==
LOC: ER 16:05 → 3 NORTH 19:39 → ER 21:07
PROVIDERS: ADMIT Obstetrics & Gynecology; ATTEND Obstetrics & Gynecology
DX: O00.10 Tubal pregnancy without intrauterine pregnancy (principal)
CPT/HCPCS: 36415; 58700; 76801; 80048; 80076; 81001; 81025; 83690; 84702; 85007; 85027; 86850; 86900; 86901; 87086; 88305; 96372; 96374; 96375; 96376; G0378; G0379; J0690; J0780; J1100; J1170; J1885; J2250; J2270; J2405; J2704; J2710; J3010; J3410; J3490; J7030; J7120; J0330

== ENCOUNTER 2016-07-22 21:36 | Emergency (ER) | payer OTHER ==
[~2016-07-22] VITALS: Ht 162.6 cm; Wt 81.6 kg
[2016-07-22 22:01] VITALS: BP 118/56
[2016-07-22 22:32] LABS: BASO # 0.1 x10^3/uL (0.0-0.2); BASO % 1 % (0-3); EOS % 5 % (0-3); HEMATOCRIT 30.4 % (36.0-47.0); HEMOGLOBIN 9.2 g/dL (12.0-15.5); LYMPH # 1.6 x10^3/uL (1.0-4.8); LYMPH % 18 % (24-48); MEAN CORPUSCULAR HEMOGLOBIN 20 pg (25-35); MEAN CORPUSCULAR HGB CONC 30 g/dL (31-37); MEAN CORPUSCULAR VOLUME 65 fL (79-100); MONO % 12 % (0-9); NEUT % 65 % (31-73); PLATELET COUNT 352 x10^3/uL (140-400); RED BLOOD COUNT 4.69 x10^6/uL (3.50-5.40); RED CELL DISTRIBUTION WIDTH 18.5 % (11.5-14.5); WHITE BLOOD COUNT 8.5 x10^3/uL (4.0-11.0)
[2016-07-22 22:36] LABS: BILIRUBIN,URINE NEGATIVE (NEG); GLUCOSE,URINE NEGATIVE (NEG); NITRITE,URINE NEGATIVE (NEG); PROTEIN,URINE NEGATIVE (NEG-TRACE)
[2016-07-22 22:53] LABS: RBC,URINE 0 /HPF (0-2)
[2016-07-22 22:54] LABS: BACTERIA,URINE FEW /HPF (0-FEW); SQUAMOUS EPITHELIAL CELL,UR MOD /LPF
[2016-07-22] MEDS ORDERED: KETOROLAC 15 MG/ML VIAL. IV ONE (23:00)
[2016-07-22] MEDS ORDERED: IV NORMAL SALINE 1000ML BAG 1,000 ML IV ONE (23:00)
[2016-07-22] MEDS ORDERED: ONDANSETRON PF 4 MG/2 ML VIAL. IV ONE (23:00)
[2016-07-22 23:01] LABS: CALCIUM 8.8 mg/dL (8.5-10.1); CREATININE 0.8 mg/dL (0.6-1.0); GFR 105.8; POTASSIUM 3.7 mmol/L (3.5-5.1)
[2016-07-22 23:02] LABS: ANISOCYTOSIS SLIGHT; HYPOCHROMIA MARKED; MICROCYTOSIS MARKED; PLT ESTIMATE ADEQUATE (ADEQUATE); POIKILOCYTOSIS SLIGHT
[2016-07-22 23:05] LABS: ALBUMIN 3.6 g/dL (3.4-5.0); ALBUMIN/GLOBULIN RATIO 0.8 (1.0-1.7); TOTAL BILIRUBIN 0.3 mg/dL (0.2-1.0); TOTAL PROTEIN 7.9 g/dL (6.4-8.2)
[2016-07-22] MEDS ORDERED: CEPH-264 PO (23:20)
--- NOTE | 2016-07-22 23:20 | PHYS DOC ---
Past Medical History Past Medical History: Anemia, Other Additional Past Medical Histor: PSEUDOTUMOR CEREBRI, ovarian cysts Past Surgical History: , Other Additional Past Surgical Histo: SPINAL TAP, SALPINGECTOMY Alcohol Use: Occasionally Drug Use: None Adult General Chief Complaint Chief Complaint: ABDOMINAL PAIN HPI HPI Patient is a 26 year old female with a history significant for pseudotumor cerebri status post surgery on April 30 for a ectopic on her right ovaries presents to the ER today complaining of abdominal pain in the lower abdomen for approximately one week. Patient reports she's been taking Tylenol occasionally for the pain with minimal relief. Patient denies any history of hypertension diabetes liver longer kidney problems. Patient denies any other surgeries other than a . Patient has any gallbladder hysterectomy appendectomy. Patient reports she does smoke and occasionally drinks. Patient is not allergic to any medications. Patient is 2 para 1. Patient denies any fevers shakes chills. Patient reports she has had 2 episodes of nausea and vomiting. Patient has any diarrhea dysuria frequency urgency URI symptoms. Patient's last menstrual period was June 14. Patient denies any vaginal discharge. Patient has any vaginal bleeding. Patient reports she was able tolerate by mouth's well today. Patient's physical exam was significant for mild tenderness to palpation to the suprapubic area as well as the left and right lower quadrants. Patient has no rebound or guarding. Patient has no psoas or obturator signs. Patient does not present with any signs or symptoms O be consistent with an acute surgical abdomen. Patient has normal active bowel sounds. Patient's workup in the ER has been unremarkable. Patient's CBC and a chemistry that were within normal limits. Patient's UA was significant for several WBCs in her urine. Patient [place] test was negative. Assessment and plan This is a 26-year-old female who presents here today complaining of lower abdominal pain. Patient's history significant for an ectopic that was diagnosed back in April 2016 and she recently had surgery for. Patient's status is negative. Patient's workup in the ER and unremarkable except for a urine that was consistent with urinary tract infection. Given the patient's symptoms of her pain we will. We treated her with Keflex and she will receive a dose of IV Rocephin in the ER and then we will send her home and have her follow-up with her primary care doctor for reevaluation. Precautions were reviewed with the patient to return the ER she has any fevers or worsening symptoms. Plan was discussed with the patient and she is in agreement with the current plan. Review of Systems Review of Systems Constitutional: Denies fever or chills [] Eyes: Denies change in visual acuity, redness, or eye pain [] All other review systems are negative except as documented in the history of present illness portion. Current Medications Current Medications Current Medications Medications (Trade) Dose Ordered Sig/Garret Start Time Stop Time Status Last Admin Dose Admin Ketorolac Tromethamine (Toradol) 15 mg 1X ONCE 07/22/16 23:00 07/22/16 23:01 DC 07/22/16 22:46 15 MG Ondansetron HCl (Zofran) 4 mg 1X ONCE 07/22/16 23:00 07/22/16 23:01 DC 07/22/16 22:45 4 MG Sodium Chloride 1,000 ml @ 1,000 mls/hr 1X ONCE 07/22/16 23:00 07/22/16 23:59 07/22/16 22:45 1,000 MLS/HR Allergies Allergies Allergies Coded Allergies Type Severity Reaction Last Updated Verified No Known Drug Allergies 05/01/16 No Physical Exam Physical Exam Constitutional: Well developed, well nourished, no acute distress, non-toxic appearance. [] HENT: Normocephalic, atraumatic, bilateral external ears normal, oropharynx moist, no oral exudates, nose normal. [] Eyes: PERRLA, EOMI, conjunctiva normal, no discharge. [] Neck: Normal range of motion, no tenderness, supple, no stridor. [] Cardiovascular:Heart rate regular rhythm, Lungs & Thorax: Bilateral breath sounds clear to auscultation [] Abdomen: See above. Skin: Warm, dry, no erythema, no rash. [] Back: No tenderness, no CVA tenderness. [] Extremities: No tenderness, no cyanosis, no clubbing, ROM intact, no edema. [] Neurologic: Alert and oriented X 3, normal motor function, normal sensory function, no focal deficits noted. [] Psychologic: Affect normal, judgement normal, mood normal. [] Current Patient Data Vital Signs Vital Signs Date Time Temp Pulse Resp B/P (MAP) Pulse Ox O2 Delivery O2 Flow Rate FiO2 07/22/16 22:01 98.9 95 20 118/56 (76) 97 Room Air 98.9 Lab Values Laboratory Tests Test 07/22/16 21:04 07/22/16 21:42 07/22/16 21:57 POC Urine HCG, Qualitative Hcg negative (Negative) Urine Collection Type Unknown Urine Color Yellow Urine Clarity Clear Urine pH 6.0 Urine Specific [place] 1.020 Urine Protein Negative mg/dL (NEG-TRACE) Urine Glucose (UA) Negative mg/dL (NEG) Urine Ketones (Stick) Negative mg/dL (NEG) Urine Blood Negative (NEG) Urine Nitrite Negative (NEG) Urine Bilirubin Negative (NEG) Urine Urobilinogen Dipstick 1.0 mg/dL (0.2 mg/dL) Urine Leukocyte Esterase Large (NEG) Urine RBC 0 /HPF (0-2) Urine WBC 11-20 /HPF (0-4) Urine Squamous Epithelial Cells Mod /LPF Urine Bacteria Few /HPF (0-FEW) Urine Mucus Slight /LPF White Blood Count 8.5 x10^3/uL (4.0-11.0) Red Blood Count 4.69 x10^6/uL (3.50-5.40) Hemoglobin 9.2 g/dL (12.0-15.5) L Hematocrit 30.4 % (36.0-47.0) L Mean Corpuscular Volume 65 fL (79-100) L Mean Corpuscular Hemoglobin 20 pg (25-35) L Mean Corpuscular Hemoglobin Concent 30 g/dL (31-37) L Red Cell Distribution Width 18.5 % (11.5-14.5) H Platelet Count 352 x10^3/uL (140-400) Neutrophils (%) (Auto) 65 % (31-73) Lymphocytes (%) (Auto) 18 % (24-48) L Monocytes (%) (Auto) 12 % (0-9) H Eosinophils (%) (Auto) 5 % (0-3) H Basophils (%) (Auto) 1 % (0-3) Neutrophils # (Auto) 5.5 x10^3uL (1.8-7.7) Lymphocytes # (Auto) 1.6 x10^3/uL (1.0-4.8) Monocytes # (Auto) 1.0 x10^3/uL (0.0-1.1) Eosinophils # (Auto) 0.4 x10^3/uL (0.0-0.7) Basophils # (Auto) 0.1 x10^3/uL (0.0-0.2) Platelet Estimate Adequate (ADEQUATE) Hypochromasia Marked Poikilocytosis Slight Anisocytosis Slight Microcytosis Marked Sodium Level 139 mmol/L (136-145) Potassium Level 3.7 mmol/L (3.5-5.1) Chloride Level 103 mmol/L (98-107) Carbon Dioxide Level 27 mmol/L (21-32) Anion Gap 9 (6-14) Blood Urea Nitrogen 13 mg/dL (7-20) Creatinine 0.8 mg/dL (0.6-1.0) Estimated GFR (Cockcroft-Gault) 105.8 BUN/Creatinine Ratio 16 (6-20) Glucose Level 100 mg/dL (70-99) H Calcium Level 8.8 mg/dL (8.5-10.1) Total Bilirubin 0.3 mg/dL (0.2-1.0) Aspartate Amino Transferase (AST) 14 U/L (15-37) L Alanine Aminotransferase (ALT) 17 U/L (14-59) Alkaline Phosphatase 77 U/L (46-116) Total Protein 7.9 g/dL (6.4-8.2) Albumin 3.6 g/dL (3.4-5.0) Albumin/Globulin Ratio 0.8 (1.0-1.7) L Laboratory Tests 07/22/16 21:57 Laboratory Tests 07/22/16 21:57 EKG EKG [] Radiology/Procedures Radiology/Procedures [] Course & Med Decision Making Course & Med Decision Making Pertinent Labs and Imaging studies reviewed. (See chart for details) [] Dragon Disclaimer Dragon Disclaimer This electronic medical record was generated, in whole or in part, using a voice recognition dictation system. Departure Departure Impression: Primary Impression: Abdominal pain Additional Impression: UTI (urinary tract infection) Disposition: 01 HOME, SELF-CARE Condition: IMPROVED Referrals: NO PCP (PCP) Patient Instructions: Abdominal Pain, Urinary Tract Infection Scripts Cephalexin (KEFLEX) 500 Mg Capsule 500 MG PO QID for 10 Days, CAP Prov: FILEMON MORALES MD 07/22/16 Problem Qualifiers Primary Impression: Abdominal pain Abdominal location: lower abdomen, unspecified Qualified Codes: R10.30 - Lower abdominal pain, unspecified Additional Impression: UTI (urinary tract infection) Urinary tract infection type: acute cystitis Hematuria presence: without hematuria Qualified Codes: N30.00 - Acute cystitis without hematuria FILEMON MORALES MD Jul 22, 2016 23:20
[2016-07-22] MEDS ORDERED: ONDA4TAB10 SL (23:34)
[2016-07-22] MEDS ORDERED: IBUP-1007 PO (23:34)
== END 2016-07-23 00:15 | disposition home or self-care (01) ==
LOC: ER 21:36
DX: N30.00 Acute cystitis without hematuria (principal); F17.200 Nicotine dependence, unspecified, uncomplicated; Z98.890 Other specified postprocedural states; Z90.721 Acquired absence of ovaries, unilateral
CPT/HCPCS: 36415; 80053; 81001; 81025; 85007; 85027; 87086; 96361; 96365; 96375; 99284; J0690; J1885; J2405; J7030

== ENCOUNTER 2016-09-05 16:54 | Emergency (ER) | payer OTHER ==
[~2016-09-05] VITALS: Ht 162.6 cm; Wt 81.6 kg
[~2016-09-05 16:54] MED LIST changes: +CEPH-264 PO; +IBUP-1007 PO
[2016-09-05 17:05] VITALS: BP 118/64
[2016-09-05 17:26] LABS: BILIRUBIN,URINE NEGATIVE (NEG); GLUCOSE,URINE NEGATIVE (NEG); NITRITE,URINE NEGATIVE (NEG); PROTEIN,URINE NEGATIVE (NEG-TRACE)
[2016-09-05 17:34] LABS: BACTERIA,URINE MODERATE /HPF (0-FEW); RBC,URINE 0 /HPF (0-2); SQUAMOUS EPITHELIAL CELL,UR MANY /LPF
--- NOTE | 2016-09-05 17:50 | PHYS DOC ---
Past Medical History Past Medical History: Anemia, Other Additional Past Medical Histor: PSEUDOTUMOR CEREBRI, ovarian cysts Past Surgical History: , Other Additional Past Surgical Histo: SPINAL TAP, SALPINGECTOMY Alcohol Use: Occasionally Drug Use: None Adult General Chief Complaint Chief Complaint: PELVIC PAIN HPI HPI Patient is a 26 year old female presents with complaints of pelvic cramps starting yesterday. Denies any dysuria or vaginal discharge. Unknown status. States the cramps are similar as to when she has had. She has small amount of bleeding yesterday but none today. No recent illnesses, no sick contacts. Review of Systems Review of Systems Constitutional: Denies fever or chills [] Respiratory: Denies cough or shortness of breath [] Cardiovascular: no chest pain GI: Denies nausea, vomiting, bloody stools or diarrhea . Distal abdominal cramps : Denies dysuria or hematuria . No vaginal discharge Musculoskeletal: Denies back pain or joint pain [] Integument: Denies rash or skin lesions [] Endocrine: Denies polyuria or polydipsia [] Allergies Allergies Allergies Coded Allergies Type Severity Reaction Last Updated Verified No Known Drug Allergies 05/01/16 No Physical Exam Physical Exam Constitutional: Well developed, well nourished, no acute distress, non-toxic appearance. [] HENT: Normocephalic, atraumatic, Eyes: EOMI, conjunctiva normal, no discharge. [] Neck: from, trachea midline Cardiovascular:Heart rate regular rhythm, no murmur [] Lungs & Thorax: Bilateral breath sounds clear to auscultation [] Abdomen: Bowel sounds normal, soft, no tenderness, no masses, no pulsatile masses. [] Skin: Warm, dry, no erythema, no rash. [] Back: mild ttp left lower back Extremities: No tenderness, no cyanosis, no clubbing, ROM intact, no edema. No signs of DVT Neurologic: Alert and oriented X 3, ambulates with normal gait and without assistance , no focal deficits noted. [] Psychologic: Affect normal, judgement normal, mood normal. [] Current Patient Data Vital Signs Vital Signs Date Time Temp Pulse Resp B/P (MAP) Pulse Ox O2 Delivery O2 Flow Rate FiO2 09/05/16 17:05 97.9 82 16 118/64 (82) 97 Room Air 97.9 Lab Values Laboratory Tests Test 09/05/16 16:27 09/05/16 17:05 POC Urine HCG, Qualitative Hcg negative (Negative) Urine Collection Type Unknown Urine Color Yellow Urine Clarity Clear Urine pH 6.0 Urine Specific [place] 1.025 Urine Protein Negative mg/dL (NEG-TRACE) Urine Glucose (UA) Negative mg/dL (NEG) Urine Ketones (Stick) Negative mg/dL (NEG) Urine Blood Negative (NEG) Urine Nitrite Negative (NEG) Urine Bilirubin Negative (NEG) Urine Urobilinogen Dipstick 1.0 mg/dL (0.2 mg/dL) Urine Leukocyte Esterase Small (NEG) Urine RBC 0 /HPF (0-2) Urine WBC 1-4 /HPF (0-4) Urine Squamous Epithelial Cells Many /LPF Urine Bacteria Moderate /HPF (0-FEW) Urine Mucus Marked /LPF EKG EKG [] Radiology/Procedures Radiology/Procedures [] Course & Med Decision Making Course & Med Decision Making Pertinent Labs and Imaging studies reviewed. (See chart for details) Patient reevaluated and found to be in no distress. The labs have been discussed with the patient. Patient declines a pelvic exam at this time. States she will follow with her PCP. Based on the vital signs and the physical examination today and the presenting complaint I do not find that the patient needs imaging at this time or is in need of inpatient evaluation at this time. Patient is in stable condition in the ED and stable for outpatient follow-up Dragon Disclaimer Dragon Disclaimer This electronic medical record was generated, in whole or in part, using a voice recognition dictation system. Departure Departure Impression: Primary Impression: Pelvic cramping Disposition: 01 HOME, SELF-CARE Condition: STABLE Referrals: NO PCP (PCP) please follow up with a primary care doctor or clinic for further evaluation and follow up. List provided to you today. Patient Instructions: Muscle Cramps Andres BURLESON MD Sep 05, 2016 17:50
== END 2016-09-05 17:56 | disposition home or self-care (01) ==
LOC: ER 16:54
DX: R10.2 Pelvic and perineal pain (principal); Z86.2 Personal history of diseases of the blood and blood-forming organs and certain disorders involving the immune mechanism; Z98.890 Other specified postprocedural states
CPT/HCPCS: 81001; 81025; 87086; 99284

== ENCOUNTER 2016-12-28 11:10 | Emergency (ER) | payer SELFPAY ==
[~2016-12-28] VITALS: Ht 162.6 cm; Wt 85.3 kg
[2016-12-28 11:25] VITALS: BP 113/73
[2016-12-28] MEDS ORDERED: HYDR-971 PO (12:12)
[2016-12-28] MEDS ORDERED: SULF1TAB24 PO (12:12)
--- NOTE | 2016-12-28 12:12 | PHYS DOC ---
Past Medical History Past Medical History: Anemia, Other Additional Past Medical Histor: PSEUDOTUMOR CEREBRI, ovarian cysts Past Surgical History: , Other Additional Past Surgical Histo: SPINAL TAP, SALPINGECTOMY Alcohol Use: Occasionally Drug Use: None Adult General Chief Complaint Chief Complaint: UPPER EXTREMITY SWELLING HPI HPI Patient is a 26 year old female resents to the emergency department stating that she has redness to her forearm for the last 4 days. She states that it spread warm swollen and very tender to touch. She states that she has swelling tingling down into her hands and up into her upper arm. She is denies any bites bruising or any scratches or open wounds. She states that her last tetanus patient was in 2009. Patient denies any fever, chills or any nausea or vomiting. Review of Systems Review of Systems Constitutional: Denies fever or chills [] Eyes: Denies change in visual acuity, redness, or eye pain [] HENT: Denies nasal congestion or sore throat [] Respiratory: Denies cough or shortness of breath [] Cardiovascular: No additional information not addressed in HPI [] GI: Denies abdominal pain, nausea, vomiting, bloody stools or diarrhea [] : Denies dysuria or hematuria [] Musculoskeletal: Denies back pain or joint pain [] Integument: Denies rash or skin lesions. Redness warmth tenderness to the left forearm. Neurologic: Denies headache, focal weakness or sensory changes [] Endocrine: Denies polyuria or polydipsia [] All other systems were reviewed and found to be within normal limits, except as documented in this note. Allergies Allergies Allergies Coded Allergies Type Severity Reaction Last Updated Verified No Known Drug Allergies 05/01/16 No Physical Exam Physical Exam Constitutional: Well developed, well nourished, no acute distress, non-toxic appearance. [] HENT: Normocephalic, atraumatic, bilateral external ears normal, oropharynx moist, no oral exudates, nose normal. [] Eyes: PERRLA, EOMI, conjunctiva normal, no discharge. [] Neck: Normal range of motion, no tenderness, supple, no stridor. [] Cardiovascular:Heart rate regular rhythm, no murmur [] Lungs & Thorax: Bilateral breath sounds clear to auscultation []] Skin: Warm, dry, no erythema, no rash. Left forearm appears to be red warm and very tender to touch with no induration noted. Peripheral pulses are 2+ cap refill brisk less than 2 seconds. Patient with full range of motion to the fingers. Extremities: No tenderness, no cyanosis, no clubbing, ROM intact, no edema. [] Neurologic: Alert and oriented X 3, normal motor function, normal sensory function, no focal deficits noted. [] Psychologic: Affect normal, judgement normal, mood normal. [] Current Patient Data Vital Signs Vital Signs Date Time Temp Pulse Resp B/P (MAP) Pulse Ox O2 Delivery O2 Flow Rate FiO2 12/28/16 11:25 98.2 87 18 113/73 (86) 100 Room Air 98.2 EKG EKG [] Radiology/Procedures Radiology/Procedures [] Course & Med Decision Making Course & Med Decision Making Pertinent Labs and Imaging studies reviewed. (See chart for details) She'll be updated with a tetanus immunization here in the emergency department. She'll be placed on Bactrim 2 tablets twice a day for the next 10 days. Recommended that she follow up with a primary care physician or return back here in the next 3-5 days for signs and symptoms become worse. She was recommended to elevate the arm as much as possible warm packs to the area 5 times a day. She'll be provided with hydrocodone for severe pain and discomfort which she was instructed will cause drowsiness do not take any be alert and oriented. [I've spoken with the patient and/or caregivers. I've explained the patient's condition, diagnosis and treatment plan based on information available to me at this time. I've answered the patient's and/or caregivers questions and addressed any concerns. The patient and/or caregivers have a good understanding the patient's diagnosis, condition and treatment plan as can be expected at this point. Vital signs have been stabilized. The patient's condition is stable for discharge from the emergency department. The patient will pursue further outpatient evaluation with her primary care provider or other designated consulting physician as outlined in the discharge instructions. Patient and/or caregivers are agreeable to this plan of care and follow-up instructions have been explained in detail. The patient and/or caregivers have received these instructions in written format and expressed understanding of these discharge instructions. The patient and her caregivers are aware that if any significant change in condition or worsening of symptoms should prompt him to immediately return to this of the closest emergency department. If an emergent department is not readily available I would encourage him to call 911. ] Lacy Disclaimer Lacy Disclaimer This electronic medical record was generated, in whole or in part, using a voice recognition dictation system. Departure Departure Impression: Primary Impression: Cellulitis of left arm Disposition: HOME, SELF-CARE Condition: STABLE Referrals: NO PCP (PCP) Patient Instructions: Cellulitis, [id number] Additional Instructions: Activity as tolerated. Medications as prescribed. Hydrocodone cholesterosis do not take any be alert and oriented. Warm moist packs to the area 5 times a day. Elevation as much as possible. Follow-up with primary care physician or return back here in the next 3-5 days for recheck. Return back to the emergency department for signs and symptoms that become worse Scripts Hydrocodone/Apap 5-325 (NORCO 5-325 TABLET) 1 Each Tablet 1 TAB PO PRN Q6HRS Y for PAIN, #15 TAB 0 Refills Prov: ALETHA OLIVA APRN 12/28/16 Sulfamethoxazole/Trimethoprim (BACTRIM DS TABLET) 1 Each Tablet 2 TAB PO BID, #40 TAB Prov: ALETHA OLIVA APRN 12/28/16 ALETHA OLIVA APRN Dec 28, 2016 12:12
[2016-12-28] MEDS ORDERED: DIPHTH,PERTUSS(ACELL),TET TOX 0.5 ML DISP.SYRIN. VAX IM ONE (12:15)
== END 2016-12-28 12:53 | disposition home or self-care (01) ==
LOC: ER 11:10
DX: L03.114 Cellulitis of left upper limb (principal); Z86.2 Personal history of diseases of the blood and blood-forming organs and certain disorders involving the immune mechanism
CPT/HCPCS: 81025; 90471; 90715; 99283-25

== ENCOUNTER 2017-01-04 10:21 | Emergency (ER) | payer SELFPAY ==
[~2017-01-04 10:21] MED LIST changes: +SULF1TAB24 PO
[2017-01-04 11:23] LABS: BILIRUBIN,URINE NEGATIVE (NEG); GLUCOSE,URINE NEGATIVE (NEG); NITRITE,URINE NEGATIVE (NEG); PROTEIN,URINE NEGATIVE (NEG-TRACE); UROBILINOGEN,URINE 0.2 mg/dL (0.2 mg/dL)
[2017-01-04] MEDS ORDERED: IV NORMAL SALINE 1000ML BAG 1,000 ML IV SCH (11:42)
[2017-01-04] MEDS ORDERED: FAMOTIDINE 20 MG/2 ML VIAL IVP ONE (11:45)
[2017-01-04] MEDS ORDERED: fentaNYL PF VIAL 100 MCG/2 ML VIAL IV PRN (11:45)
[2017-01-04] MEDS ORDERED: ONDANSETRON PF 4 MG/2 ML VIAL. IV ONE (11:45)
--- NOTE | 2017-01-04 11:45 | PHYS DOC ---
Past Medical History Past Medical History: Anemia, Other Additional Past Medical Histor: PSEUDOTUMOR CEREBRI, ovarian cysts Past Surgical History: , Other Additional Past Surgical Histo: SPINAL TAP, SALPINGECTOMY Alcohol Use: Occasionally Drug Use: None Adult General Chief Complaint Chief Complaint: ABDOMINAL PAIN HPI HPI Patient is a 26 year old female who presents with complaint of left-sided abdominal pain. Patient states that she has had pain over the past 2 days. Patient states that the pain is sharp and rates her pain currently as 7 out of 10. Patient states that the pain is constant and does not have any exacerbating or alleviating factors at this time. Patient states that she has been taking oral Bactrim for treatment of left upper extremity cellulitis. Patient states that this has been improving, however she states that her symptoms did start shortly after she had been taking this medication. Patient denies any associated fevers, hematemesis, but has had nausea and vomiting associated with her symptoms. Review of Systems Review of Systems Constitutional: Denies fever or chills [] Eyes: Denies change in visual acuity, redness, or eye pain [] HENT: Denies nasal congestion or sore throat [] Respiratory: Denies cough or shortness of breath [] Cardiovascular: Denies chest pain or edema[] GI: Abdominal pain, nausea, vomiting, denies bloody stools[] : Denies dysuria or hematuria [] Musculoskeletal: Denies back pain or joint pain [] Integument: Denies rash or skin lesions [] Neurologic: Denies headache, focal weakness or sensory changes [] All other systems were reviewed and found to be within normal limits, except as documented in this note. Current Medications Current Medications Current Medications Medications (Trade) Dose Ordered Sig/Garret Start Time Stop Time Status Last Admin Dose Admin Famotidine (Pepcid Vial) 20 mg 1X ONCE 01/04/17 11:45 01/04/17 11:46 DC 01/04/17 12:19 20 MG Fentanyl Citrate (Fentanyl 2ml Vial) 50 mcg PRN Q15MIN PRN 01/04/17 11:45 01/05/17 11:44 01/04/17 12:19 50 MCG Ondansetron HCl (Zofran) 4 mg 1X ONCE 01/04/17 11:45 01/04/17 11:46 DC 01/04/17 12:19 4 MG Sodium Chloride 1,000 ml @ 1,000 mls/hr Q1H 01/04/17 11:42 01/04/17 12:41 DC 01/04/17 12:18 1,000 MLS/HR Allergies Allergies Allergies Coded Allergies Type Severity Reaction Last Updated Verified No Known Drug Allergies 05/01/16 No Physical Exam Physical Exam Constitutional: Alert, afebrile, no acute distress.[] HENT: Normocephalic, atraumatic, bilateral external ears normal, oropharynx moist, no oral exudates, nose normal. [] Eyes: PERRLA, EOMI, conjunctiva normal, no discharge. [] Neck: Normal range of motion, no tenderness, supple, no stridor. [] Cardiovascular:Heart rate regular rhythm, no murmur [] Lungs & Thorax: Bilateral breath sounds clear to auscultation [] Abdomen: Bowel sounds normal, soft, mild epigastric and left upper quadrant tenderness to palpation with no guarding or rebound tenderness, no masses, no pulsatile masses. [] Skin: Warm, dry, no erythema, no rash. [] Back: No tenderness, no CVA tenderness. [] Extremities: No tenderness, no cyanosis, no clubbing, ROM intact, no edema. [] Neurologic: Alert and oriented X 3, normal motor function, normal sensory function, no focal deficits noted. [] Current Patient Data Vital Signs Vital Signs Date Time Temp Pulse Resp B/P (MAP) Pulse Ox O2 Delivery O2 Flow Rate FiO2 01/04/17 12:19 55 18 97/56 (70) 99 Room Air 01/04/17 10:40 98.3 98.3 Lab Values Laboratory Tests Test 01/04/17 10:30 01/04/17 10:34 01/04/17 10:40 Urine Collection Type Unknown Urine Color Yellow Urine Clarity Clear Urine pH 6.0 Urine Specific Valders 1.025 Urine Protein Negative mg/dL (NEG-TRACE) Urine Glucose (UA) Negative mg/dL (NEG) Urine Ketones (Stick) Negative mg/dL (NEG) Urine Blood Moderate (NEG) Urine Nitrite Negative (NEG) Urine Bilirubin Negative (NEG) Urine Urobilinogen Dipstick 0.2 mg/dL (0.2 mg/dL) Urine Leukocyte Esterase Negative (NEG) Urine RBC 0 /HPF (0-2) Urine WBC 0 /HPF (0-4) Urine Squamous Epithelial Cells Few /LPF Urine Bacteria 0 /HPF (0-FEW) POC Urine HCG, Qualitative Hcg negative (Negative) White Blood Count 4.6 x10^3/uL (4.0-11.0) Red Blood Count 5.00 x10^6/uL (3.50-5.40) Hemoglobin 11.1 g/dL (12.0-15.5) L Hematocrit 36.0 % (36.0-47.0) Mean Corpuscular Volume 72 fL (79-100) L Mean Corpuscular Hemoglobin 22 pg (25-35) L Mean Corpuscular Hemoglobin Concent 31 g/dL (31-37) Red Cell Distribution Width 18.0 % (11.5-14.5) H Platelet Count 359 x10^3/uL (140-400) Neutrophils (%) (Auto) 55 % (31-73) Lymphocytes (%) (Auto) 36 % (24-48) Monocytes (%) (Auto) 6 % (0-9) Eosinophils (%) (Auto) 2 % (0-3) Basophils (%) (Auto) 1 % (0-3) Neutrophils # (Auto) 2.5 x10^3uL (1.8-7.7) Lymphocytes # (Auto) 1.7 x10^3/uL (1.0-4.8) Monocytes # (Auto) 0.3 x10^3/uL (0.0-1.1) Eosinophils # (Auto) 0.1 x10^3/uL (0.0-0.7) Basophils # (Auto) 0.0 x10^3/uL (0.0-0.2) Platelet Estimate Pending Sodium Level 135 mmol/L (136-145) L Potassium Level 4.6 mmol/L (3.5-5.1) Chloride Level 102 mmol/L (98-107) Carbon Dioxide Level 25 mmol/L (21-32) Anion Gap 8 (6-14) Blood Urea Nitrogen 12 mg/dL (7-20) Creatinine 1.1 mg/dL (0.6-1.0) H Estimated GFR (Cockcroft-Gault) 73.2 BUN/Creatinine Ratio 11 (6-20) Glucose Level 103 mg/dL (70-99) H Calcium Level 8.6 mg/dL (8.5-10.1) Total Bilirubin 0.2 mg/dL (0.2-1.0) Aspartate Amino Transferase (AST) 18 U/L (15-37) Alanine Aminotransferase (ALT) 18 U/L (14-59) Alkaline Phosphatase 79 U/L (46-116) Total Protein 8.2 g/dL (6.4-8.2) Albumin 3.8 g/dL (3.4-5.0) Albumin/Globulin Ratio 0.9 (1.0-1.7) L Lipase 117 U/L (73-393) Laboratory Tests 01/04/17 10:40 Laboratory Tests 01/04/17 10:40 EKG EKG Not performed[] Radiology/Procedures Radiology/Procedures Not performed[] Course & Med Decision Making Course & Med Decision Making Pertinent Labs and Imaging studies reviewed. (See chart for details) Patient was given IV fluids, fentanyl, and Zofran in the emergency department. Patient's lab work unremarkable for severe acute illness. The patient's symptoms are likely due to GI intolerance from her current Bactrim medication. Patient will be given Zofran and Pepcid for continued outpatient treatment. Advised patient follow-up in 3-5 days a primary doctor for reevaluation and return to emergency department for any worsening symptoms. Patient voiced understanding and in agreement with treatment plan. Dragon Disclaimer Dragon Disclaimer This electronic medical record was generated, in whole or in part, using a voice recognition dictation system. Departure Departure Impression: Primary Impression: Abdominal pain Additional Impression: Nausea & vomiting Disposition: 01 HOME, SELF-CARE Condition: IMPROVED Referrals: NO PCP (PCP) Patient Instructions: Abdominal Pain (Nonspecific), Nausea and Vomiting Additional Instructions: Follow-up with your primary doctor in 3-5 days for reevaluation. Return to emergency department for any worsening symptoms. Scripts Famotidine (PEPCID) 20 Mg Tablet 20 MG PO BID, #30 TAB Prov: CHARMAINE WAGNER MD 01/04/17 Ondansetron (ZOFRAN ODT) 4 Mg Tab.rapdis 1 TAB SL Q8HRS Y for NAUSEA/VOMITING, #15 TAB Prov: CHARMAINE WAGNER MD 01/04/17 Problem Qualifiers Primary Impression: Abdominal pain Abdominal location: left upper quadrant Qualified Codes: R10.12 - Left upper quadrant pain Additional Impression: Nausea & vomiting Vomiting type: unspecified Vomiting Intractability: non-intractable Qualified Codes: R11.2 - Nausea with vomiting, unspecified CHARMAINE WAGNER MD Jan 04, 2017 11:45
[2017-01-04 11:52] LABS: BASO % 1 % (0-3); EOS % 2 % (0-3); HEMOGLOBIN 11.1 g/dL (12.0-15.5); LYMPH # 1.7 x10^3/uL (1.0-4.8); LYMPH % 36 % (24-48); MEAN CORPUSCULAR HEMOGLOBIN 22 pg (25-35); MEAN CORPUSCULAR HGB CONC 31 g/dL (31-37); MEAN CORPUSCULAR VOLUME 72 fL (79-100); MONO % 6 % (0-9); NEUT % 55 % (31-73); PLATELET COUNT 359 x10^3/uL (140-400); WHITE BLOOD COUNT 4.6 x10^3/uL (4.0-11.0)
[2017-01-04 11:52] LABS: BACTERIA,URINE 0 /HPF (0-FEW); RBC,URINE 0 /HPF (0-2); SQUAMOUS EPITHELIAL CELL,UR FEW /LPF; WBC,URINE 0 /HPF (0-4)
[2017-01-04 11:58] LABS: CALCIUM 8.6 mg/dL (8.5-10.1); CREATININE 1.1 mg/dL (0.6-1.0); GFR 73.2; POTASSIUM 4.6 mmol/L (3.5-5.1)
[2017-01-04 12:04] LABS: ALBUMIN 3.8 g/dL (3.4-5.0); ALBUMIN/GLOBULIN RATIO 0.9 (1.0-1.7); TOTAL BILIRUBIN 0.2 mg/dL (0.2-1.0); TOTAL PROTEIN 8.2 g/dL (6.4-8.2)
[2017-01-04 12:19] VITALS: BP 97/56
[2017-01-04] MEDS ORDERED: FAMO-63 PO (12:53)
[2017-01-04] MEDS ORDERED: ONDA4TAB10 SL (12:53)
[2017-01-04 14:02] LABS: OVALOCYTES OCC; PLT ESTIMATE INCREASED (ADEQUATE); TARGET CELLS OCC
== END 2017-01-04 13:36 | disposition home or self-care (01) ==
LOC: ER 10:21
DX: R10.12 Left upper quadrant pain (principal); R11.2 Nausea with vomiting, unspecified; L03.114 Cellulitis of left upper limb
CPT/HCPCS: 36415; 80053; 81001; 81025; 83690; 85025; 96361; 96374; 96375; 99284; J2405; J3010; J7030; S0028